=== PATIENT | female | born 1955 | race American Indian/Alaskan Native ===

== ENCOUNTER 2016-08-12 23:09 | Inpatient (IN) | payer BC ==
[2016-08-12] MEDS ORDERED: Furosemide 40 MG/4 ML VIAL IVPUSH ONE (23:35)
[2016-08-12] MEDS ORDERED: Albuterol/Ipratropium 3.0-0.5 MG/3 ML Neb Soln NEB ONE (23:35)
[2016-08-12] MEDS ORDERED: methylPREDNISolone Sodium Succinate 125 MG/2 ML SDV IVPUSH ONE (23:55)
[2016-08-13] MEDS ORDERED: LORazepam 2 MG/ML Syringe IVPUSH ONE (00:01)
[2016-08-13 00:06] LABS: CHLORIDE,CL 105 mmol/L (101-111); SODIUM,NA 140 mmol/L (135-145)
[2016-08-13 00:26] LABS: O2 DELIVERY DEVICE CPAP
--- NOTE | 2016-08-13 00:29 | EDM.PDOC ---
ED HPI GENERAL MEDICAL PROBLEM - General Chief Complaint: Respiratory Problem Stated Complaint: RESPIRATORY PROBLEM [id number] Time Seen by Provider: 08/12/16 23:20 Source of Information: Reports: Patient, Family History Limitations: Reports: No Limitations - History of Present Illness INITIAL COMMENTS - FREE TEXT/NARRATIVE: ED with c/o SOB Sore throat yesterday. Harder time breathing today, worse tonight. No fever, Hx COPD, continues to smoke. Occasional cough. Decreased appetite. Prior open heart to repair mitral valve. 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 Onset: Gradual Duration: Getting Worse Location: Reports: Chest Severity: Moderate Throat Pain Score (Numeric/FACES): 8 - Related Data Allergies Allergy/AdvReac Type Severity Reaction Status Date / Time No Known Allergies Allergy Verified 08/12/16 23:20 Home Meds: Home Meds Albuterol Sulfate [Proair Hfa] 8.5 gm IH Q4HR PRN 08/12/16 [History] Aspirin [Halfprin] 81 mg PO BRK 08/12/16 [History] Furosemide [Lasix] 40 mg PO DAILY 08/12/16 [History] Potassium Chloride 10 meq PO DAILY 08/12/16 [History] Simvastatin [Zocor] 10 mg PO BEDTIME 08/12/16 [History] Warfarin [Coumadin] 5 mg PO ASDIRECTED 08/12/16 [History] Amoxicillin/Clavulanate K [Augmentin 875 MG/125 MG] 1 tab PO Q12HR #14 tablet [Rx] Methylprednisolone [IJD: Methylprednisolone] 4 mg PO DAILY #21 tab 08/14/16 [Rx] Past Medical History Cardiovascular History: Reports: Afib, AR Respiratory History: Reports: COPD Neurological History: Reports: CVA - Infectious Disease History Infectious Disease History: Reports: Other (See Below) Other Infectious Disease History: H1N1 - Past Surgical History Cardiovascular Surgical History: Reports: Other (See Below) Other Cardiovascular Surgeries/Procedures: 3 open heart surgeries, mitral valve replacement each time Social & Family History - Tobacco Use Smoking Status *Q: Current Every Day Smoker Years of Tobacco use: 40 Packs/Tins Daily: 0.5 Second Hand Smoke Exposure: Yes - Recreational Drug Use Recreational Drug Use: No ED ROS GENERAL - Review of Systems Review Of Systems: See Below Constitutional: Reports: Fever, Malaise, Weakness, Decreased Appetite HEENT: Reports: No Symptoms Respiratory: Reports: Shortness of Breath, Wheezing, Cough, Sputum (yellow) Cardiovascular: Reports: No Symptoms GI/Abdominal: Reports: Decreased Appetite : Reports: No Symptoms Musculoskeletal: Reports: No Symptoms Skin: Reports: No Symptoms Neurological: Reports: No Symptoms ED EXAM, GENERAL - Physical Exam Exam: See Below Exam Limited By: No Limitations General Appearance: Alert, Anxious, Moderate Distress Eye Exam: Bilateral Eye: PERRL Ears: Normal External Exam Ear Exam: Bilateral Ear: TM normal Nose: Normal Inspection Throat/Mouth: No Airway Compromise, Other (membranes dry) Head: Atraumatic, Normocephalic Neck: Normal Inspection, Full Range of Motion. No: Carotid Bruit Respiratory/Chest: Respiratory Distress, Rhonchi, Wheezing, Accessory Muscle Use Cardiovascular: Normal Peripheral Pulses, Regular Rate, Rhythm. No: No Edema GI/Abdominal: Normal Bowel Sounds, Non-Tender Back Exam: Normal Inspection Extremities: Normal Inspection, Normal Range of Motion, Pedal Edema (trace) Neurological: Alert, Oriented, Normal Cognition Psychiatric: Normal Affect, Normal Mood Skin Exam: Warm, Dry, Intact Course - Vital Signs Last Recorded V/S: Last Vital Signs Temp 98.9 F 08/14/16 11:10 Pulse 89 08/14/16 13:00 Resp 20 08/14/16 11:10 BP 110/57 L 08/14/16 11:10 Pulse Ox 98 08/14/16 13:00 - Orders/Labs/Meds Labs: Laboratory Tests 08/12/16 08/12/16 08/12/16 Range/Units 23:30 23:30 23:30 WBC 10.5 H (5.0-10.0) 10^3/uL RBC 5.08 (4.2-5.4) 10^6/uL Hgb 12.4 (12.0-16.0) g/dL Hct 39.5 (37.0-47.0) % MCV 77.8 L (80-100) fL MCH 24.4 L (27.0-34.0) pg MCHC 31.4 L (33.0-35.0) g/dL Plt Count 263 (150-450) 10^3/uL PT (9.0-12.0) SEC INR (0.9-1.2) D-Dimer, Quantitative 105 (0-400) ng/mL ABG pH (7.35-7.45) ABG pCO2 (35-45) mmHg ABG pO2 (70-100) mmHg ABG HCO3 (22-26) mmol/L ABG O2 Saturation (95-100) % ABG Base Excess ((-2)-(+3)) mmol/L Elvin Test O2 Delivery Device Sodium 140 (135-145) mmol/L Potassium 3.4 L (3.6-5.0) mmol/L Chloride 105 (101-111) mmol/L Carbon Dioxide 25.0 (21.0-31.0) mmol/L Anion Gap 13.4 BUN 19 H (7-18) mg/dL Creatinine 0.6 (0.6-1.3) mg/dL Est Cr Clr Drug Dosing 91.01 mL/min Estimated GFR (MDRD) > 60 BUN/Creatinine Ratio 31.66 Glucose 132 H (74-105) mg/dL Calcium 9.0 (8.4-10.2) mg/dl Total Bilirubin 1.1 H (0.2-1.0) mg/dL AST 50 H (10-42) IU/L ALT 25 (10-60) IU/L Alkaline Phosphatase 93 (42-121) IU/L Troponin I < 0.02 (0.00-0.02) ng/ml B-Natriuretic Peptide 96 (0-100) pg/ml Total Protein 7.8 (6.7-8.2) g/dl Albumin 4.8 (3.2-5.5) g/dl Globulin 3.0 Albumin/Globulin Ratio 1.60 Amylase 40 (28-100) U/L Lipase 28 (22-51) U/L Urine Color (YELLOW) Urine Appearance (CLEAR) Urine pH (5.0-9.0) Ur Specific [place] (1.005-1.030) Urine Protein (NEGATIVE) Urine Glucose (UA) (NEGATIVE) Urine Ketones (NEGATIVE) Urine Occult Blood (NEGATIVE) Urine Nitrite (NEGATIVE) Urine Bilirubin (NEGATIVE) Urine Urobilinogen (0.2-1.0) mg/dL Ur Leukocyte Esterase (NEGATIVE) Urine RBC /HPF Urine WBC (0-5/HPF) /HPF Ur Epithelial Cells /HPF Urine Bacteria (0-FEW/HPF) /HPF Urine Mucus /LPF 0608/13/16 08/13/16 Range/Units 23:30 00:00 00:35 WBC (5.0-10.0) 10^3/uL RBC (4.2-5.4) 10^6/uL Hgb (12.0-16.0) g/dL Hct (37.0-47.0) % MCV (80-100) fL MCH (27.0-34.0) pg MCHC (33.0-35.0) g/dL Plt Count (150-450) 10^3/uL PT 19.1 H (9.0-12.0) SEC INR 1.9 H (0.9-1.2) D-Dimer, Quantitative (0-400) ng/mL ABG pH 7.39 (7.35-7.45) ABG pCO2 44 (35-45) mmHg ABG pO2 66 L (70-100) mmHg ABG HCO3 26.3 H (22-26) mmol/L ABG O2 Saturation 91 L (95-100) % ABG Base Excess 2 ((-2)-(+3)) mmol/L Elvin Test Positive O2 Delivery Device Cpap Sodium (135-145) mmol/L Potassium (3.6-5.0) mmol/L Chloride (101-111) mmol/L Carbon Dioxide (21.0-31.0) mmol/L Anion Gap BUN (7-18) mg/dL Creatinine (0.6-1.3) mg/dL Est Cr Clr Drug Dosing mL/min Estimated GFR (MDRD) BUN/Creatinine Ratio Glucose (74-105) mg/dL Calcium (8.4-10.2) mg/dl Total Bilirubin (0.2-1.0) mg/dL AST (10-42) IU/L ALT (10-60) IU/L Alkaline Phosphatase (42-121) IU/L Troponin I (0.00-0.02) ng/ml B-Natriuretic Peptide (0-100) pg/ml Total Protein (6.7-8.2) g/dl Albumin (3.2-5.5) g/dl Globulin Albumin/Globulin Ratio Amylase (28-100) U/L Lipase (22-51) U/L Urine Color Rebecca (YELLOW) Urine Appearance Cloudy (CLEAR) Urine pH 5.0 (5.0-9.0) Ur Specific [place] 1.020 (1.005-1.030) Urine Protein 30 H (NEGATIVE) Urine Glucose (UA) Negative (NEGATIVE) Urine Ketones 15 H (NEGATIVE) Urine Occult Blood Large H (NEGATIVE) Urine Nitrite Negative (NEGATIVE) Urine Bilirubin Small H (NEGATIVE) Urine Urobilinogen 1.0 (0.2-1.0) mg/dL Ur Leukocyte Esterase Small H (NEGATIVE) Urine RBC 5-10 H /HPF Urine WBC 30-40 H (0-5/HPF) /HPF Ur Epithelial Cells Moderate H /HPF Urine Bacteria Many H (0-FEW/HPF) /HPF Urine Mucus Moderate H /LPF Meds: Medications Discontinued Medications Generic Name Dose Route Start Last Admin Trade Name Freq PRN Reason Stop Dose Admin Acetaminophen 650 mg 08/13/16 01:19 08/13/16 13:25 Tylenol PO 650 mg Q4H PRN Administration Pain (Mild 1-3)/fever Albuterol/Ipratropium 3 ml 08/12/16 23:35 08/12/16 23:41 Duoneb 3.0-0.5 Mg/3 Ml NEB 08/12/16 23:36 3 ml ONETIME ONE Administration Albuterol/Ipratropium 3 ml 08/13/16 07:00 08/14/16 19:58 Duoneb 3.0-0.5 Mg/3 Ml NEB Not Given Q6HRRT YONI Aspirin 81 mg 08/13/16 01:30 08/14/16 09:46 Halfprin PO 81 mg BRK YONI Administration Ceftriaxone Sodium Confirm 08/13/16 02:06 08/13/16 03:08 Rocephin Administered 08/13/16 02:07 Not Given Dose 1 gm .ROUTE .STK-MED ONE Furosemide 40 mg 08/12/16 23:35 08/12/16 23:41 Lasix IVPUSH 08/12/16 23:36 40 mg NOW ONE Administration Furosemide 40 mg 08/13/16 09:00 08/14/16 09:46 Lasix PO 40 mg DAILY YONI Administration Ceftriaxone Sodium 1 gm/ 50 mls @ 100 mls/hr 08/13/16 01:30 08/13/16 02:26 Sodium Chloride IV 100 mls/hr Q24H YONI Administration Ceftriaxone Sodium 1 gm/ 100 mls @ 200 mls/hr 08/13/16 04:00 08/14/16 04:53 Sodium Chloride IV 200 mls/hr Q24H YONI Administration Lorazepam 1 mg 08/13/16 00:01 08/13/16 00:06 Ativan IVPUSH 08/13/16 00:02 1 mg ONETIME ONE Administration Methylprednisolone Sodium Succinate 125 mg 08/12/16 23:55 08/13/16 00:06 Solu-Medrol IVPUSH 08/12/16 23:56 125 mg ONETIME ONE Administration Methylprednisolone Sodium Succinate 40 mg 08/13/16 01:30 08/13/16 06:15 Solu-Medrol IVPUSH Not Given Q8H YONI Methylprednisolone Sodium Succinate 40 mg 08/13/16 08:00 08/14/16 17:38 Solu-Medrol IVPUSH Not Given Q8H YONI Nicotine 21 mg 08/13/16 09:00 08/14/16 09:43 Habitrol TRDERM 21 mg DAILY YONI Administration Potassium Chloride 10 meq 08/13/16 09:00 08/14/16 09:46 Klor-Con 10 PO 10 meq DAILY YONI Administration Potassium Chloride 20 meq 08/13/16 01:37 08/13/16 02:26 Klor-Con 10 PO 08/13/16 01:38 20 meq ONETIME ONE Administration Simvastatin 10 mg 08/13/16 21:00 08/14/16 01:55 Zocor PO Not Given BEDTIME YONI Sodium Chloride 10 ml 08/13/16 01:19 08/13/16 16:26 Saline Flush FLUSH 10 ml ASDIRECTED PRN Administration Keep Vein Open Warfarin Sodium 5 mg 08/13/16 14:00 08/13/16 13:32 Coumadin PO Not Given [address] [facility] Warfarin Sodium 1 dose 08/13/16 15:00 Pharmacy To Dose - Warfarin .XX ASDIRECTED YONI Warfarin Sodium 7.5 mg 08/14/16 14:00 08/14/16 13:26 Coumadin PO 08/14/16 14:01 7.5 mg ONETIME ONE Administration - Re-Assessments/Exams Free Text/Narrative Re-Assessment/Exam: 08/24/16 06:52 RT here, patient placed on CPAP to assist with oxygen demand, fair toleration. Saturation improved. scalloper hospitalist accepting of patient for further eval and management. Departure - Departure Time of Disposition: 01:10 Disposition: Admitted As Inpatient 65 Condition: Undetermined Clinical Impression: Shortness of breath COPD (chronic obstructive pulmonary disease) Qualifiers: COPD type: COPD with acute exacerbation Qualified Code(s): J44.1 - Chronic obstructive pulmonary disease with (acute) exacerbation URI (upper respiratory infection) Qualifiers: URI type: unspecified URI Qualified Code(s): J06.9 - Acute upper respiratory infection, unspecified - Discharge Information
[2016-08-13 00:39] LABS: BASE EXCESS ARTERIAL 2 mmol/L ((-2)-(+3)); BICARBONATE,ARTERIAL 26.3 mmol/L (22-26); O2 SATURATION ARTERIAL 91 % (95-100); PCO2 ARTERIAL 44 mmHg (35-45); PO2 ARTERIAL 66 mmHg (70-100)
[2016-08-13 00:41] LABS: ALLEN TEST POSITIVE
[2016-08-13] MEDS ORDERED: Acetaminophen 325 MG Tab PO PRN (01:19)
[2016-08-13] MEDS ORDERED: Sodium Chloride 0.9% 10 ML Syringe FLUSH PRN (01:19)
[2016-08-13] MEDS ORDERED: cefTRIAXone 1 GM in Sodium Chloride 0.9% 50 ML IV SCH (01:30)
[2016-08-13] MEDS ORDERED: methylPREDNISolone Sodium Succinate 40 MG/1 ML SDV IVPUSH SCH (01:30)
[2016-08-13] MEDS ORDERED: Potassium Chloride 10 MEQ Tab.ER PO ONE (01:37)
[2016-08-13] MEDS ORDERED: cefTRIAXone 1 GM Vial ONE (02:06)
--- NOTE | 2016-08-13 02:13 | HP ---
CHIEF COMPLAINT: Shortness of breath. HISTORY OF PRESENT ILLNESS: The patient is a 61-year-old lady with past medical history of mitral valve replacement with mechanical valve, COPD, tobacco habituation, depression, who was admitted through the emergency room because of increasing shortness of breath. The patient mentioned that this started about Sunday morning. She started with a sore throat and then she started to have some chest congestion and coughing spells, and lately she has been having some increasing shortness of breath. She denies though any chest pain. Denies any fever, chills, orthopnea, PND, abdominal pain, nausea, vomiting, nor any other complaints. Because of the increasing shortness of breath, she presented to the emergency room and she was subsequently admitted. REVIEW OF SYSTEMS: As in HPI. The rest of the review of systems is negative, although she mentioned that she did not take her Coumadin today because she had some nose bleeds. FAMILY HISTORY: Noncontributory. PAST MEDICAL HISTORY: As in HPI. SOCIAL HISTORY: The patient still smokes cigarettes, half a pack per day, and she had history of 45 pack years. Denies any alcohol use. MEDICATIONS: Home medications: 1. Coumadin. 2. Simvastatin. 3. Potassium chloride. 4. Lasix. 5. Aspirin. 6. Albuterol. ALLERGIES: No known drug allergies. PHYSICAL EXAMINATION: General: The patient is alert and oriented, in moderate respiratory distress. Vital Signs: Blood pressure is 130/70, pulse of 100, respirations of 32, saturation is 88%, and at 2 L per nasal cannula, it was 93%. Temperature is 98.8. HEENT: Normocephalic. There are pink palpebral conjunctivae. Sclerae anicteric. Neck: No JVD. No lymphadenopathy. Heart: Regular rate and rhythm with mechanical S2, no mechanical S1. No gallops. Lungs: Remarkable for scattered rhonchi and expiratory wheeze bilaterally with some mild crackles. Abdomen: Soft and nontender. Bowel sounds positive. Extremities: Negative for any significant pedal edema. No calf tenderness. No signs of cellulitis. LABORATORY DATA: CBC; WBC 10.5, hemoglobin is 12.4, hematocrit is 39.5, platelet is 263. Chem-6; potassium is 3.4, BUN is 19, glucose is 132, total bilirubin of 1.1, AST of 50. The rest of the panel unremarkable. ABG; pH is 7.39, pCO2 of 44, PO2 of 66, bicarb of 26.3, saturation is 91%. Urinalysis is remarkable for 5-10 rbc's and 30-40 wbc's with many bacteria. ADMITTING DIAGNOSES: 1. Respiratory distress. 2. Chronic obstructive pulmonary disease exacerbation. 3. History of mitral valve replacement with mechanical valve. 4. Depression. 5. Dyslipidemia. 6. Hypokalemia. TREATMENT PLAN: The patient is going to be admitted to General Medicine floor. She will be empirically started on IV antibiotics, Rocephin, and she will also be on Solu-Medrol IV and DuoNeb treatment and potassium will be repleted and she will resume on her own home medication. Protime will also be ordered as patient is on Coumadin. The rest of the management as necessary. The patient's code level status is do not intubate and do not resuscitate and this was discussed with the patient as well as with her daughter. I will send her urine for culture as urinalysis showing some bacteria and leukocytes. [facility] /[id number]
[2016-08-13] MEDS: Aspirin 81 MG Tab.EC PO SCH ×2 (02:26→08:38)
[2016-08-13] MEDS: cefTRIAXone 1 GM in Sodium Chloride 0.9% 100 ML IV SCH (06:15)
[2016-08-13] MEDS: Albuterol/Ipratropium 3.0-0.5 MG/3 ML Neb Soln NEB SCH ×3 (07:16→17:46)
[2016-08-13] MEDS: Potassium Chloride 10 MEQ Tab.ER PO SCH (08:38)
[2016-08-13] MEDS: methylPREDNISolone Sodium Succinate 40 MG/1 ML SDV IVPUSH SCH ×2 (08:38→16:27)
[2016-08-13] MEDS: Furosemide 40 MG Tab PO SCH (08:38)
[2016-08-13] MEDS: Nicotine 21 MG/24 Hr Patch TRDERM SCH (08:39)
[2016-08-13] MEDS ORDERED: Warfarin 5 MG Tab PO SCH (14:00)
[2016-08-13] MEDS ORDERED: Simvastatin 10 MG Tab PO SCH (21:00)
[2016-08-14] MEDS: Albuterol/Ipratropium 3.0-0.5 MG/3 ML Neb Soln NEB SCH ×4 (01:53→19:58)
[2016-08-14] MEDS: methylPREDNISolone Sodium Succinate 40 MG/1 ML SDV IVPUSH SCH ×3 (01:53→17:38)
[2016-08-14] MEDS: cefTRIAXone 1 GM in Sodium Chloride 0.9% 100 ML IV SCH (04:53)
[2016-08-14 06:48] LABS: CHLORIDE,CL 100 mmol/L (101-111); SODIUM,NA 134 mmol/L (135-145)
--- NOTE | 2016-08-14 07:11 | PN ---
DATE: 08/13/2016 SUBJECTIVE: The patient is feeling slightly better this morning, but she still has some coughing spells. She denies any chest pain, abdominal pain, nausea, or vomiting. LABORATORY DATA: ProTime is 19.1, INR is 1.9. PHYSICAL EXAMINATION: Vital Signs: Blood pressure is 117/62, pulse of 87, respirations 20, temperature of 99.5, and saturation is 93% on 2 L per nasal cannula. Heart: Regular rate and rhythm. Normal S1 and S2. Lungs: Still remarkable for scattered rhonchi on both lung barnard. Abdomen: Soft and nontender. Bowel sounds positive. Extremities: Negative for any significant pedal edema. No calf tenderness. MEDICATIONS: Reviewed. PLAN: We will continue with her present management and continue with IV antibiotics and Solu-Medrol. [facility] /[id number]
[2016-08-14] MEDS: Nicotine 21 MG/24 Hr Patch TRDERM SCH (09:43)
[2016-08-14] MEDS: Potassium Chloride 10 MEQ Tab.ER PO SCH (09:46)
[2016-08-14] MEDS: Furosemide 40 MG Tab PO SCH (09:46)
[2016-08-14] MEDS: Aspirin 81 MG Tab.EC PO SCH (09:46)
[2016-08-14 11:11] VITALS: BP 110/57
[2016-08-14] MEDS ORDERED: Warfarin 2.5 MG Tab PO ONE (14:00)
--- NOTE | 2016-09-04 10:10 | EKG ---
08/12/2016 - MERNA RUFFIN - EKG is atrial fibrillation with a rate of 102. There is a right axis deviation. There are nonspecific ST-T wave changes on the inferior leads. IMPRESSION: Abnormal EKG as noted above. [facility] /[id number]
--- NOTE | 2016-10-26 05:31 | DISCH ---
FINAL DIAGNOSES: 1. Bronchitis. 2. Warfarin anticoagulation secondary to status post mitral valve replacement. BRIEF HISTORY AND PHYSICAL EXAMINATION: The patient is a 61-year-old female who was admitted because of shortness of breath that has been worsening associated with chest congestion and coughing spells. No associated fever, chills, orthopnea, or PND. The patient is an active smoker. On admission, documented vital signs showed her oxygen saturation of 88%, pulse of 100 beats per minute, oxygen went up to 93% at 2 L oxygen. Noted expiratory wheezes bilaterally and crackles on lung auscultation. BRIEF HOSPITAL COURSE: The patient was admitted in general medicine floor and started on IV antibiotics of Rocephin, IV Solu-Medrol, and DuoNeb treatment. For the hypokalemia, this was replaced. INR was also rechecked given her anticoagulation use. INR was noted to be at 1.9 and subsequently 1.8. Her D- dimer was 105. The next day, oxygen started to berry picker, started to feel better, and was discharged the next day. DISCHARGE VITAL SIGNS: Vital Signs: Blood pressure of 110/57, heart rate of 89 beats per minute, respirations 20 breaths per minute, and oxygen saturation 98%. DISCHARGE INSTRUCTIONS: The patient is stable to be discharged home to follow up with the primary care provider within 1 to 2 weeks from discharge. Continue with incentive spirometry and Flutter valve at home. Finish antibiotics and steroid. Monitor signs of intolerance from the antibiotic use and to come back to the emergency room if with emergent health concerns. [facility] /[id number]
== END 2016-08-14 14:45 | disposition home or self-care (01) | DRG 140 ==
LOC: DL.ED 23:09 → DL.MS 08-13 01:02 → UNDOADMIN 08-13 01:02 → DL.MS 08-13 01:24
PROVIDERS: ADMIT Internal Medicine; ATTEND Internal Medicine
DX: J44.1 Chronic obstructive pulmonary disease with (acute) exacerbation (principal); J06.9 Acute upper respiratory infection, unspecified; R06.00 Dyspnea, unspecified; F32.9 Major depressive disorder, single episode, unspecified; E78.5 Hyperlipidemia, unspecified; E87.6 Hypokalemia; Z79.01 Long term (current) use of anticoagulants; Z95.2 Presence of prosthetic heart valve; F17.200 Nicotine dependence, unspecified, uncomplicated; Z79.899 Other long term (current) drug therapy; Z79.82 Long term (current) use of aspirin; I48.91 Unspecified atrial fibrillation; I25.2 Old myocardial infarction; Z86.73 Personal history of transient ischemic attack (TIA), and cerebral infarction without residual deficits
CPT/HCPCS: 36415; 36600; 71010; 80048; 80053; 81001; 82150; 82803; 83690; 83880; 84484; 85025; 85027; 85379; 85610; 87081; 87086; 87430; 93005; 94010; 94640; 94660; 94667; 96374; 96375; 99285; A9270-GY; J0696; J1940; J2060; J2920; J2930; J7050